=== PATIENT | female | born 1990 | race Caucasian/White ===

== ENCOUNTER 2018-09-27 12:45 | Emergency (ER) | payer OTHER, SELFPAY ==
--- OUTSIDE RECORDS SUMMARY | 2018-09-27 12:47 | XMS REPORT ---
:1990 [facility] Address [address] [place] [address] Care Team Providers Name Role Phone JOSE SHAH Unavailable Unavailable Problems This patient has no known problems. Allergies, Adverse Reactions, Alerts This patient has no known allergies or adverse reactions. Medications This patient has no known medications. Results Test Description Test Time Test Comments Text Results Atomic Results Result Comments URINALYSIS W/ MICROSCOPIC 2016-08-18 02:56:00 Test Item Value Reference Range Comments COLOR (BEAKER) (test lgvd=479) Yellow CLARITY (BEAKER) (test lfhk=849) Hazy SPECIFIC GRAVITY UA (BEAKER) (test kdtd=869) 1.017 1.001-1.035 PH UA (BEAKER) (test rwoz=961) 6.0 5.0-8.0 PROTEIN UA (BEAKER) (test nuzl=504) 10 mg/dL Negative GLUCOSE UA (BEAKER) (test yebi=580) Negative Negative KETONES UA (BEAKER) (test gpel=435) Trace Negative BILIRUBIN UA (BEAKER) (test vecj=552) Negative Negative BLOOD UA (BEAKER) (test oqwr=393) Moderate Negative NITRITE UA (BEAKER) (test mkyh=963) Negative Negative LEUKOCYTE ESTERASE UA (BEAKER) (test jabi=295) Trace Negative UROBILINOGEN UA (BEAKER) (test dgre=206) 0.2 mg/dL 0.2-1.0 RBC UA (BEAKER) (test ilmi=236) 3 /HPF WBC UA (BEAKER) (test tyzy=496) 2 /HPF MUCUS (BEAKER) (test qpnk=6421) Moderate SQUAMOUS EPITHELIAL (BEAKER) (test dwpx=973) 8 /HPF SOURCE(BEAKER) (test wjvr=6855) Urine, Voided
--- OUTSIDE RECORDS SUMMARY | 2018-09-27 12:47 | XMS REPORT | Continuity of Care Document ---
:1990 Author Organization Interface Problems Problem Status Onset Date Classification Date Comments Source Reported Medications Medication Details Route Status Patient Ordering Order Source Instructions Provider Date Allergies, Adverse Reactions, Alerts Substance Category Reaction Severity Reaction Status Date Comments Source type Reported Immunizations Immunization Date Given Site Status Last Updated Comments Source Results Order Results Value Reference Date Interpretation Comments Source Name Range Vital Signs Vital Sign Value Date Comments Source Encounters Location Location Encounter Encounter Reason Attending ADM DC Status Source Details Type Number For Provider Date Date Visit Outpatient [id number] [facility] [place] [facility] [id number] [facility]/09 [facility] [place] [facility] [id number] [facility] [place] [facility] [id number] [facility]/18 [facility] [place] [facility] [id number] [facility] [place] Procedures Procedure Code Date Perfomer Comments Source
--- OUTSIDE RECORDS SUMMARY | 2018-09-27 12:47 | XMS REPORT | Clinical Summary ---
:1990 Author Organization [facility] Address [address] [place] [address] Care Team Providers Name Role Phone Unavailable Primary Care Provider Unavailable Allergies Active Allergy Reactions Severity Noted Date Comments Amoxicillin Diarrhea, Nausea And 08/17/2016 Vomiting Latex, Natural Rubber Anaphylaxis High 08/17/2016 Sulfa (Sulfonamide Hives High 08/17/2016 Antibiotics) Medications Medication Sig Dispensed Refills Start Date End Date Status busPIRone (BUSPAR) 15 Take 15 mg by 0 Active MG tabletIndications: mouth 3 (three) Generalized Anxiety times daily. Disorder FLUoxetine (PROZAC) 40 Take 60 mg by 0 Active MG capsuleIndications: mouth daily. Generalized Anxiety Disorder dicyclomine (BENTYL) 20 Take 20 mg by 0 Active mg tablet mouth every 4 (four) hours as needed. lansoprazole (PREVACID) Take 30 mg by 0 Active 15 MG mouth daily. capsuleIndications: gastroesophageal reflux disease nitrofurantoin, Take 100 mg by 0 Active macrocrystal-monohydrat mouth 2 (two) e, (MACROBID) 100 MG times daily Pt capsuleIndications: has been taking bacterial vaginosis this medication since 08/11/2016 and she was supposed to take it for 7 days. . oxybutynin (DITROPAN) 5 Take 5 mg by 0 Active MG tabletIndications: mouth daily. Increased Urinary Frequency pantoprazole (PROTONIX) Take 1 tablet (40 7 tablet 0 08/18/2016 Active 40 MG tablet mg total) by mouth daily. Active Problems Problem Noted Date Cervical nerve root compression 08/17/2016 Weakness of left arm 08/17/2016 Family History Medical History Relation Name Comments Hyperlipidemia Father Hypertension Father Depression Mother Diabetes Mother Hyperlipidemia Mother Hypertension Mother Relation Name Status Comments Father Alive Mother Alive Social History Tobacco Use Types Packs/Day Years Used Date Current Every Day Smoker 0.25 Tobacco Cessation: Ready to Quit: No; Counseling Given: Yes Comments: Had a miscarrage in 2016. Sex Assigned at Date Recorded Not on file Job Start Date Occupation Industry Not on file Not on file Not on file Travel History Travel Start Travel End No recent travel history available. Last Filed Vital Signs Not on file Plan of Treatment Not on file Results Not on fileafter 09/26/2017 Insurance Payer Benefit Plan / Subscriber ID Type Phone Address Group MEDICAID - MEDICAID MEDICAID COMM xxxxxxxxx Medicaid Contracted [facility] CHOICE
[2018-09-27 13:33] LABS: Urine Blood 3+ (NEG); Urine Glucose NEGATIVE (NEG); Urine Protein 1+ (NEG); Urine pH 6.5 (5.0-7.0)
[2018-09-27] MEDS ORDERED: NA CHLORIDE 0.9% 1,000 ML ONE (13:39)
[2018-09-27] MEDS ORDERED: ONDANSETRON 4 MG/2 ML VIAL ONE (13:39)
[2018-09-27] MEDS ORDERED: CEFTRIAXONE/SWI 1gm 1 GM/10 ML SYR ONE (13:39)
[2018-09-27] MEDS ORDERED: MORPHINE 4 MG/ML SYR ONE (13:39)
[2018-09-27 14:00] LABS: Absolute Lymphocytes (CBC) 1.8 K/uL (0.7-4.9); Absolute Monocytes 0.6 K/uL (0.1-1.3); Basophils % 0.7 % (0-1.3); Eosinophils % 1.4 % (0-4.4); Hematocrit 39.7 % (36.0-45.0); Lymphocytes % 27.7 % (15.3-44.8); MPV 8.1 fL (7.6-11.3); Monocytes % 9.8 % (3.3-12.3); RBC Red Blood Cell Count 4.89 M/uL (3.86-4.86)
[2018-09-27 14:13] LABS: ALT/SGPT 29 U/L (12-78); AST/SGOT 20 U/L (15-37); Albumin 3.9 g/dL (3.4-5.0); Alkaline Phosphatase 65 U/L (45-117); BUN Blood Urea Nitrogen 10 mg/dL (7-18); Bicarbonate 25 mmol/L (21-32); Bilirubin Direct < 0.1 mg/dL (0-0.2); Bilirubin Total 0.2 mg/dL (0.2-1.0); Glucose Level 104 mg/dL (74-106); Lipase 89 U/L (73-393); Potassium 3.9 mmol/L (3.5-5.1); Protein, Total 7.3 g/dL (6.4-8.2); Sodium Level 143 mmol/L (136-145)
--- NOTE | 2018-09-27 14:15 | EDPHYS ---
Physician Documentation [facility] Name: Melida Elliott Age: 28 yrs Sex: Female : 1990 Arrival Date: 09/27/2018 Time: 12:47 Bed 23 Private MD: ED Physician Trey Baron HPI: 09/27 13:45 This 28 yrs old Female presents to ER via Ambulatory with complaints of ma2 Urinary Problem. 13:45 The patient complains of pain in the left mid back. The pain does not radiate. Onset: ma2 The symptoms/episode began/occurred gradually, 2 day(s) ago. Associated signs and symptoms: Pertinent positives: dysuria, vomiting, Pertinent negatives: dizziness, headache, nausea. Severity of pain: At its worst the pain was moderate in the emergency department the pain is unchanged. The patient has experienced similar episodes in the past. 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 - Social history:: Patient/guardian denies using alcohol, street drugs, The patient lives with family, Smoking status: Patient/guardian denies using tobacco. - Ebola Screening: : No symptoms or risks identified at this time. - Family history:: not pertinent. ROS: 13:45 Constitutional: Negative for fever, chills, and weight loss. ma2 13:45 Back: Positive for flank pain, Negative for pain at rest, pain with movement. 13:45 : Positive for urinary symptoms, flank pain, hematuria, Negative for difficulty urinating, menstrual abnormality. 13:45 All other systems are negative. Exam: 13:45 Constitutional: This is a well developed, well nourished patient who is awake, alert, ma2 and in no acute distress. Chest/axilla: Normal chest wall appearance and motion. Nontender with no deformity. No lesions are appreciated. Cardiovascular: Regular rate and rhythm with a normal S1 and S2. No gallops, murmurs, or rubs. Normal PMI, no JVD. No pulse deficits. Respiratory: Lungs have equal breath sounds bilaterally, clear to auscultation and percussion. No rales, rhonchi or wheezes noted. No increased work of breathing, no retractions or nasal flaring. Abdomen/GI: Soft, non-tender, with normal bowel sounds. No distension or tympany. No guarding or rebound. No evidence of tenderness throughout. MS/ Extremity: Pulses equal, no cyanosis. Neurovascular intact. Full, normal range of motion. Neuro: Awake and alert, GCS 15, oriented to person, place, time, and situation. Cranial nerves II-XII grossly intact. Motor strength 5/5 in all extremities. Sensory grossly intact. Cerebellar exam normal. Normal gait. 13:45 Back: pain, that is mild, CVA tenderness, that is moderate, is noted on the right. Vital Signs: 12:49 BP 152 / 86; Pulse 118; Resp 20; Temp 98.6; Pulse Ox 98% ; Weight 79.38 kg; Height 4 sv ft. 11 in. (149.86 cm); Pain 8/10; 13:34 BP 128 / 80; Pulse 99; Resp 19 S; Pulse Ox 100% on R/A; ca1 14:20 BP 128 / 76; Pulse 88; Resp 18 S; Pulse Ox 99% on R/A; ca1 15:09 BP 110 / 75; Pulse 89; Resp 19 S; Pulse Ox 100% on R/A; ca1 12:49 Body Mass Index 35.35 (79.38 kg, 149.86 cm) sv MDM: 12:50 Patient medically screened. [facility] 13:45 Differential diagnosis: pyelonephritis, UTI, pancreatitis. [facility] 14:13 Data reviewed: vital signs, nurses notes. Counseling: I had a detailed discussion with ma2 the patient and/or guardian regarding: the historical points, exam findings, and any diagnostic results supporting the discharge/admit diagnosis, the presence of at least one elevated blood pressure reading (>120/80) during this emergency department visit, the need for outpatient follow up. Response to treatment: the patient's symptoms have resolved after treatment. 09/27 13:06 Order name: Urine Dipstick--Ancillary (enter results); Complete Time: 13:57 eb 09/27 13:06 Order name: Urine --Ancillary (enter results); Complete Time: 13:57 eb 09/27 13:16 Order name: Basic Metabolic Panel [facility] 09/27 13:16 Order name: CBC with Diff; Complete Time: 14:13 [facility] 09/27 13:16 Order name: Creatinine for Radiology; Complete Time: 14:13 [facility] 09/27 13:16 Order name: Hepatic Function [facility] 09/27 12:50 Order name: Urine Dipstick-Ancillary (obtain specimen); Complete Time: 13:04 [facility] 09/27 13:16 Order name: Lipase [facility] 09/27 13:16 Order name: Test, Serum [facility] 09/27 13:16 Order name: IV Saline Lock; Complete Time: 14:05 [facility] 09/27 13:16 Order name: Labs collected and sent; Complete Time: 14:05 [facility] Administered Medications: 13:17 Not Given (Duplicate Order): Rocephin (cefTRIAXone) 1 grams IM once iw 13:40 Drug: NS 0.9% 1000 ml Route: IV; Rate: 1 bolus; Site: right antecubital; ca1 15:00 Follow up: IV Status: Completed infusion ca1 13:42 Drug: Zofran 4 mg Route: IVP; Site: right antecubital; ca1 14:17 Follow up: Response: No adverse reaction; Nausea is decreased ca1 13:45 Drug: morphine 4 mg Route: IVP; Site: right antecubital; ca1 14:21 Follow up: Response: No adverse reaction; Pain is decreased ca1 13:48 Drug: Rocephin 1 grams Route: IV; Rate: per protocol; Site: right antecubital; ca1 14:21 Follow up: IV Status: Slow IVP per pharmacy protocol ca1 Disposition: 09/27/18 14:14 Discharged to Home. Impression: Cystitis, unspecified with hematuria. - Condition is Stable. - Discharge Instructions: Urinary Tract Infection, Adult. - Prescriptions for Tylenol- Codeine #3 300-30 mg Oral Tablet - take 2 tablet by ORAL route every 6 hours As needed; 30 tablet. Levaquin 750 mg Oral Tablet - take 1 tablet by ORAL route once daily for 10 days; 10 tablet. - Medication Reconciliation Form, Thank You Letter, Antibiotic Education, Prescription Opioid Use form. - Follow up: Private Physician; When: Tomorrow; Reason: Continuance of care. Signatures: [facility] Le, AmieDANIEL webber RN, Irene, RN RN iw Alzahri, Mohammad, MD MD ma2 Clara Arroyo RN RN ca1 Corrections: (The following items were deleted from the chart) 15:11 14:14 09/27/2018 14:14 Discharged to Home. Impression: Cystitis, unspecified with ca1 hematuria. Condition is Stable. Prescriptions for Tylenol-Codeine #3 300-30 mg Oral Tablet - take 2 tablet by ORAL route every 6 hours As needed; 30 tablet, Levaquin 750 mg Oral Tablet - take 1 tablet by ORAL route once daily for 10 days; 10 tablet. and Forms are Medication Reconciliation Form, Thank You Letter, Antibiotic Education, Prescription Opioid Use. Follow up: Private Physician; When: Tomorrow; Reason: Continuance of care. ma2
--- NOTE | 2018-09-27 14:15 | ER ---
Nurse's Notes [facility] Name: Melida Elliott Age: 28 yrs Sex: Female : 1990 Arrival Date: 09/27/2018 Time: 12:47 Bed 23 Private MD: Diagnosis: Cystitis, unspecified with hematuria Presentation: 09/27 12:48 Presenting complaint: Patient states: hematuria for a long time and has been increasing sv over the last week and today has felt like passing out. Transition of care: patient was not received from another setting of care. Onset of symptoms is unknown. Care prior to arrival: None. 12:48 Method Of Arrival: Ambulatory sv 12:48 Acuity: OLLIE 3 sv 12:55 Initial Sepsis Screen: Does the patient meet any 2 criteria? No. Patient's initial ca1 sepsis screen is negative. Does the patient have a suspected source of infection? Yes: Dysuria/Frequency/Urgency/UTI. 13:12 Risk Assessment: Do you want to hurt yourself or someone else? Patient reports no ca1 desire to harm self or others. Initial Sepsis Screen: Does the patient meet any 2 criteria?. Triage Assessment: 12:55 General: Appears in no apparent distress. comfortable. 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 - Social history:: Patient/guardian denies using alcohol, street drugs, The patient lives with family, Smoking status: Patient/guardian denies using tobacco. - Ebola Screening: : No symptoms or risks identified at this time. - Family history:: not pertinent. Screenin:50 Abuse screen: Denies threats or abuse. Denies injuries from another. Nutritional ca1 screening: No deficits noted. Tuberculosis screening: No symptoms or risk factors identified. Fall Risk None identified. Assessment: 12:50 General: Appears in no apparent distress. comfortable, Behavior is calm, cooperative, ca1 appropriate for age, Reports feeling ill for > 3 days. Pain: Complains of pain in abdomen Pain radiates to back Pain currently is 8 out of 10 on a pain scale. Quality of pain is described as crampy, Pain began a week ago Is intermittent, Also complains of nausea. Neuro: Level of Consciousness is awake, alert, obeys commands, Oriented to person, place, time, situation. Cardiovascular: Heart tones S1 S2 present Capillary refill < 3 seconds Patient's skin is warm and dry. Respiratory: Airway is patent Respiratory effort is even, unlabored, Respiratory pattern is regular, symmetrical, Breath sounds are clear bilaterally. GI: Abdomen is round non-distended, Bowel sounds present X 4 quads. Abd is soft X 4 quads Abdomen is tender to palpation X 4 quads. Reports cramping, nausea, vomiting, since since a couple days ago. : Urine is blood tinged, Reports burning with urination, since about a week cramping, pt reports to seem to have started her menstrual period today but seems unsure since she is "bleeding everywhere". Pt reports of blood in urine and increases every time she urinates and also reports of having a hemorrhoid after giving 8 months ago which started bleeding about a week ago. EENT: No deficits noted. No signs and/or symptoms were reported regarding the EENT system. Derm: Skin is intact, is healthy with good turgor, Skin is pink, warm \\T\\ dry. Musculoskeletal: Circulation, motion, and sensation intact. Capillary refill < 3 seconds. 13:40 Reassessment: Patient appears in no apparent distress at this time. Patient and/or ca1 family updated on plan of care and expected duration. Pain level reassessed. Patient is alert, oriented x 3, equal unlabored respirations, skin warm/dry/pink. 14:23 Reassessment: Patient appears in no apparent distress at this time. Patient is alert, ca1 oriented x 3, equal unlabored respirations, skin warm/dry/pink. Patient states feeling better. 14:25 Reassessment: To be discharged after IVF completion. ca1 15:09 Reassessment: Patient appears in no apparent distress at this time. Patient is alert, ca1 oriented x 3, equal unlabored respirations, skin warm/dry/pink. Patient states feeling better. Vital Signs: 12:49 BP 152 / 86; Pulse 118; Resp 20; Temp 98.6; Pulse Ox 98% ; Weight 79.38 kg; Height 4 sv ft. 11 in. (149.86 cm); Pain 8/10; 13:34 BP 128 / 80; Pulse 99; Resp 19 S; Pulse Ox 100% on R/A; ca1 14:20 BP 128 / 76; Pulse 88; Resp 18 S; Pulse Ox 99% on R/A; ca1 15:09 BP 110 / 75; Pulse 89; Resp 19 S; Pulse Ox 100% on R/A; ca1 12:49 Body Mass Index 35.35 (79.38 kg, 149.86 cm) sv ED Course: 12:47 Patient arrived in ED. mr 12:49 Triage completed. sv 12:49 Arm band placed on. sv 12:50 Trey Baron MD is Attending Physician. ma2 12:50 Patient has correct armband on for positive identification. Placed in gown. Bed in low ca1 position. Call light in reach. Side rails up X 1. Pulse ox on. NIBP on. Warm blanket given. 12:54 Clara Arroyo, RN is Primary Nurse. ca1 13:38 No provider procedures requiring assistance completed. Inserted saline lock: 20 gauge ca1 in right antecubital area, using aseptic technique. ,using aseptic technique. by Stephanie Fox, conservation specialist Blood collected. 15:10 IV discontinued, intact, bleeding controlled, No redness/swelling at site. Pressure ca1 dressing applied. Administered Medications: 13:17 Not Given (Duplicate Order): Rocephin (cefTRIAXone) 1 grams IM once iw 13:40 Drug: NS 0.9% 1000 ml Route: IV; Rate: 1 bolus; Site: right antecubital; ca1 15:00 Follow up: IV Status: Completed infusion ca1 13:42 Drug: Zofran 4 mg Route: IVP; Site: right antecubital; ca1 14:17 Follow up: Response: No adverse reaction; Nausea is decreased ca1 13:45 Drug: morphine 4 mg Route: IVP; Site: right antecubital; ca1 14:21 Follow up: Response: No adverse reaction; Pain is decreased ca1 13:48 Drug: Rocephin 1 grams Route: IV; Rate: per protocol; Site: right antecubital; ca1 14:21 Follow up: IV Status: Slow IVP per pharmacy protocol ca1 Outcome: 14:14 Discharge ordered by . ma2 15:10 Discharged to home ambulatory. ca1 15:10 Condition: stable 15:10 Discharge instructions given to patient, Instructed on discharge instructions, follow up and referral plans. medication usage, Demonstrated understanding of instructions, follow-up care, medications, Prescriptions given X 2. 15:11 Patient left the ED. ca1 Signatures: Amie Lujan RN RN Kelli Sharma, MD CRICKET Yang ma2 Clara Arroyo RN RN ca1 Torin, Kate SANCHEZ iw
[2018-09-27 15:41] VITALS: TEMP 98.6
[2018-09-27 15:45] VITALS: BP 110/75; O2SAT 100
== END 2018-09-27 15:11 | disposition home or self-care (01) ==
LOC: ER 12:45
DX: N30.90 Cystitis, unspecified without hematuria (principal); Z88.2 Allergy status to sulfonamides; Z91.040 Latex allergy status
CPT/HCPCS: 36415; 80048; 80076; 81003; 81025; 83690; 84703; 85025; 96361; 96365; 96375; 99284; J0696; J2405; J7030